=== PATIENT | female | born 1985 | race Asian ===

== ENCOUNTER 2018-03-03 15:34 | Emergency (ER) | payer OTHER ==
[~2018-03-03] VITALS: Ht 162.6 cm; Wt 61.8 kg
[2018-03-03 15:39] VITALS: TEMP 98.3
[2018-03-03] MEDS ORDERED: LEXAPRO20 MG PO (15:41)
[2018-03-03] MEDS ORDERED: NEXPLANON68 MG ID (15:41)
[2018-03-03] MEDS ORDERED: ZYRTEC 10MG10 MG PO (15:41)
[2018-03-03 16:38] VITALS: BP 113/79; PULSE 65
== END 2018-03-03 16:41 | disposition home or self-care (01) ==
LOC: COL.ER 15:34
DX: S61.217A Laceration without foreign body of left little finger without damage to nail, initial encounter (principal); W26.0XXA Contact with knife, initial encounter